=== PATIENT | female | born 1950 | race Caucasian/White ===

== ENCOUNTER 2016-09-12 07:12 | Day surgery (SDC) | payer OTHER ==
[~2016-09-12] VITALS: Ht 162.6 cm; Wt 52.2 kg
[~2016-09-12 07:12] MED LIST: LEVO25TA6 PO; SIMV10TA84 PO
[2016-09-12] MEDS ORDERED: LIDOCAINE 2%HCL (LOCAL ANESTH.) INJ 20ML MDV ONE (07:22)
[2016-09-12] MEDS ORDERED: IOHEXOL 350 MG/ML 100ML IJ ONE (07:23)
[2016-09-12] MEDS ORDERED: MIDAZOLAM HCL 1MG/1ML-2 ML VIAL ONE (07:40)
[2016-09-12] MEDS ORDERED: SODIUM CHL 0.9% 0 ML ONE (07:41)
[2016-09-12] MEDS ORDERED: ANGIOMAX 250 MG VIAL IV ONE (07:41)
[2016-09-12] MEDS ORDERED: fentaNYL CITRATE 100 MCG/2 ML VL ONE (07:41)
== END 2016-09-12 12:15 | disposition home or self-care (01) ==
LOC: CATH 07:12
PROVIDERS: ATTEND Internal Medicine Cardiovascular Disease
DX: I50.1 Left ventricular failure, unspecified (principal)
CPT/HCPCS: 93458; C1760; C1894; J1644; J2250; J3010; J7030; Q9967; 99152